=== PATIENT | female | born 1935 | race Caucasian/White ===

== ENCOUNTER 2017-11-08 20:14 | Emergency (ER) | payer MEDICARE, BC ==
[2017-11-08 20:29] VITALS: BP 147/77
[2017-11-08] MEDS ORDERED: Amoxicillin/Clavulanate TAB* 875 MG PO ONE (20:48)
--- NOTE | 2017-11-08 21:07 | UC ---
Respiratory Complaint HPI - History of Current Complaint Chief Complaint: UCGeneralIllness Stated Complaint: THROAT,COUGH Time Seen by Provider: 11/08/17 20:17 Hx Obtained From: Patient ?: No Onset/Duration: Sudden Onset, Lasting Days Severity Initially: Mild Severity Currently: Moderate Pain Intensity: 0 Character: Cough: Nonproductive Aggravating Factors: Allergens Alleviating Factors: Nothing Associated Signs And Symptoms: Positive: Negative - Risk Factors Pulmonary Embolism Risk Factors: Negative Cardiac Risk Factors: Hypertension, Elevated Lipids Pseudomonas Risk Factors: Negative Tuberculosis Risk Factors: Negative - Allergies/Home Medications Allergies/Adverse Reactions: Allergies Allergy/AdvReac Type Severity Reaction Status Date / Time No Known Allergies Allergy Verified 11/08/17 20:29 Home Medications: Home Medications Cholecalciferol TAB* [Vitamin D TAB*] 1 each PO DAILY 11/08/17 [History Confirmed 11/08/17] Gabapentin CAP(*) [Neurontin 400 mg CAP(*)] 400 mg PO TID 11/08/17 [History Confirmed 11/08/17] Hydrochlorothiazide TAB* [Hydrodiuril TAB*] 25 mg PO DAILY 11/08/17 [History Confirmed 11/08/17] Multivit-Min/Folic Acid/Vit K1 [Multi For Her 50 Plus Softgel] 1 each PO DAILY 11/08/17 [History Confirmed 11/08/17] Pravastatin (NF) [Pravachol (NF)] 20 mg PO DAILY 11/08/17 [History Confirmed 06/27] guaiFENesin/CODIEN 100MG-10MG* [Robitussin AC 100Mg-10Mg*] 10 ml PO Q12H [History Confirmed 11/08/17] PMH/Surg Hx/FS Hx/Imm Hx Endocrine History: Dyslipidemia Cardiovascular History: Hypertension - Surgical History Surgical History: Yes Surgery Procedure, Year, and Place: PARTIAL HYSTERECTOMY. LUMPECTOMY BREAST - Family History Known Family History: Positive: Diabetes, Other - cancer lung, breast - Social History Alcohol Use: None Substance Use Type: None Smoking Status (MU): Never Smoked Tobacco Review of Systems Respiratory: Cough All Other Systems Reviewed And Are Negative: Yes Physical Exam Triage Information Reviewed: Yes Appearance: No Pain Distress, Obese Vital Signs: Initial Vital Signs Temp 99.2 F 11/08/17 20:25 Pulse 86 11/08/17 20:25 Resp 18 11/08/17 20:25 BP 147/77 11/08/17 20:25 Pulse Ox 97 11/08/17 20:25 Vital Signs Reviewed: Yes Eyes: Positive: Conjunctiva Clear ENT: Positive: Hearing grossly normal, Pharynx normal, TMs normal - cerumen on right TM Neck: Positive: Supple, Nontender, No Lymphadenopathy Respiratory: Positive: Chest non-tender, Crackles, Stridor, Inspiration Cardiovascular: Positive: RRR, No Murmur, Pulses Normal, Brisk Capillary Refill Diagnostic Evaluation - Laboratory O2 Sat by Pulse Oximetry: 97 Respiratory Course/Dx - Course Course Of Treatment: Patient with acute bronchitis, start augmentin as prescribed, first dose was dispensed at . Start flovent Diskus as prescribed, oral hydration and rest - Differential Dx/Diagnosis Provider Diagnoses: Acute Bronchitis Discharge - Sign-Out/Discharge Documenting (check all that apply): Discharge/Admit/Transfer - Discharge Plan Condition: Stable Disposition: HOME Prescriptions: Amoxicillin/Clavulanate TAB* [Augmentin TAB 875*] 875 mg PO BID 7 Days #14 tab Fluticasone DISKUS 100 MCG(NF) [Flovent Diskus 100 MCG(NF)] 1 puff INH BID 7 Days #1 diskus Patient Education Materials: Acute Bronchitis (ED), Amoxicillin/Clavulanate Potassium (By mouth), Fluticasone (By breathing) Referrals: Non Staff,Doctor [Primary Care Provider] - [facility] [place] [facility] [place] [facility] [place]] - Billing Disposition and Condition Condition: STABLE Disposition: Home
== END 2017-11-08 21:01 | disposition home or self-care (01) ==
LOC: UCCORT 20:14
DX: J20.9 Acute bronchitis, unspecified (principal); I10 Essential (primary) hypertension; E78.5 Hyperlipidemia, unspecified
CPT/HCPCS: 99202; A9270-GY; G0463

== ENCOUNTER 2017-11-12 08:34 | Emergency (ER) | payer MEDICARE, BC ==
[2017-11-12 08:56] VITALS: BP 147/67
[2017-11-12] MEDS ORDERED: Lidocaine/Epineph/Tetraca SOL* (LET solution) 4 ML BTL TOPICAL ONE (09:07)
--- NOTE | 2017-11-12 09:17 | UC ---
Skin Complaint HPI - HPI Summary HPI Summary: PATIENT PRESENTS WITH 2 DAYS OF TENDER, RED LUMP IN RIGHT ARMPIT GETTING WORSE. NO FEVER/CHILLS. NO NAUSEA/VOMITING. DOES NOT SHAVE HER ARMPITS. IS ON DAY 4 OF 7 OF AUGMENTIN FOR BRONCHITIS. - History of Current Complaint Chief Complaint: UCGeneralIllness Time Seen by Provider: 11/12/17 08:52 Stated Complaint: RIGHT ARMPIT COMPLAINT Hx Obtained From: Patient Onset/Duration: Gradual Onset, Lasting Days, Still Present Timing: Constant Onset Severity: Moderate Current Severity: Moderate Pain Intensity: 4 Pain Scale Used: 0-10 Numeric Location: Discrete - RIGHT AXILLA Character: Pain, Redness, Raised Aggravating Factor(s): Touch Alleviating Factor(s): Nothing Associated Signs & Symptoms: Positive: Tenderness. Negative: Nausea, Fever, Drainage - Allergy/Home Medications Allergies/Adverse Reactions: Allergies Allergy/AdvReac Type Severity Reaction Status Date / Time No Known Allergies Allergy Verified 11/12/17 08:47 Review of Systems Constitutional: Negative Skin: Other - RED, TENDER LUMP RIGHT ARMPIT Respiratory: Negative Cardiovascular: Negative Gastrointestinal: Negative All Other Systems Reviewed And Are Negative: Yes PMH/Surg Hx/FS Hx/Imm Hx Cancer History: Breast Cancer - Surgical History Surgical History: Yes Surgery Procedure, Year, and Place: PARTIAL HYSTERECTOMY. LUMPECTOMY BREAST - Family History Known Family History: Positive: Hypertension, Diabetes, Other - cancer lung, breast - Social History Alcohol Use: None Substance Use Type: None Smoking Status (MU): Never Smoked Tobacco Physical Exam Triage Information Reviewed: Yes Appearance: Well-Appearing, No Pain Distress, Well-Nourished Vital Signs: Initial Vital Signs Temp 97.3 F 11/12/17 08:48 Pulse 96 11/12/17 08:48 Resp 18 11/12/17 08:48 BP 147/67 11/12/17 08:48 Pulse Ox 99 11/12/17 08:48 Vital Signs Reviewed: Yes Eyes: Positive: Conjunctiva Clear ENT: Positive: Hearing grossly normal Neck: Positive: Supple Respiratory: Positive: No respiratory distress, No accessory muscle use Cardiovascular: Positive: Pulses Normal Abdomen Description: Positive: Soft Musculoskeletal: Positive: No Edema Neurological: Positive: Alert Psychological: Positive: Age Appropriate Behavior Skin: Positive: Other - 5CM X 3CM AREA OF ERYTHEMA RIGHT AXILLA WITH 3CM X 3CM AREA OF INDURATION CENTRALLY LOCATED. SMALL AREA OF FLUCTUANCE Course/Dx - Course Course Of Treatment: TOPICAL LET APPLIED FOR ANESTHESIA. TIMEOUT COMPLETED. 11 BLADE USED TO INCISE ABSCESS IN RIGHT AXILLA. COPIOUS AMOUNTS OF PUS EXPRESSED. SPECIMEN SENT FOR CULTURE. NON-IODINATED PACKING PLACED. ADVISED TO REMOVE PACKING IN 2 DAYS. BACTRIM TWICE DAILY FOR 10 DAYS. WARM COMPRESSES 4 TIMES DAILY. TAKE OTC PROBIOTIC. - Diagnoses Provider Diagnoses: ABSCESS RIGHT AXILLA Procedures - Incision and Drainage Right Axilla Anesthesia: Topical - LET APPLIED Instrument(s): Scalpel - 11 BLADE Packing: Gauze - NO IODINATED Discharge - Sign-Out/Discharge Documenting (check all that apply): Discharge/Admit/Transfer - Discharge Plan Condition: Stable Disposition: HOME Prescriptions: Sulfamethox/Trimethoprim DS* [Bactrim DS 800/160 TAB*] 1 tab PO BID #20 tab Patient Education Materials: Abscess (ED) Referrals: No Primary Care Phys,NOPCP [Primary Care Provider] - Additional Instructions: WOUND CULTURE SENT TODAY. WE WILL CALL YOU IF YOUR TREATMENT NEEDS TO BE CHANGED. COMPLETE YOUR AUGMENTIN PRESCRIBED. START BACTRIM TO COVER FOR THE INFECTION IN YOUR ARMPIT. TAKE AN OTC PROBIOTIC SUCH CULTURELLE OR FLORASTOR TO HELP MAINTAIN YOUR "GOOD" RAFAEL AND PREVENT DIARRHEA. LEAVE THE PACKING IN FOR 2 DAYS THEN REMOVE AND APPLY WARM/HOT MOIST COMPRESSES 4 TIMES DAILY. OKAY TO CHANGE THE DRESSING IF NEEDED IF IT SOAKS THROUGH. ONCE THE PACKING IS OUT CHANGE BANDAGE DAILY AND NEEDED IF BECOMES SOILED OR WET SEEK FOLLOW-UP HERE IF YOU DEVELOP SPREADING REDNESS OF THE SKIN, PERSISTENT PURULENT DRAINAGE, FEVER, INCREASED PAIN OR ANY OTHER CONCERNING SYMPTOMS. OTC IBUPROFEN/TYLENOL NEEDED FOR DISCOMFORT - Billing Disposition and Condition Condition: STABLE Disposition: Home
== END 2017-11-12 10:34 | disposition home or self-care (01) ==
LOC: UCCORT 08:34
DX: L02.411 Cutaneous abscess of right axilla (principal)
CPT/HCPCS: 10060; 87070; 87077; 87185; 87205; 87640; 87641; 99212; G0463